=== PATIENT | male | born 1965 | race Caucasian/White ===

== ENCOUNTER 2017-10-19 08:58 | Emergency (ER) | payer SELFPAY ==
[~2017-10-19] VITALS: Ht 175.3 cm; Wt 77.1 kg
[2017-10-19] MEDS ORDERED: IV NORMAL SALINE 1000ML BAG 1,000 ML IV SCH (09:12)
[2017-10-19] MEDS ORDERED: HYDROmorphone 2 MG/ML VIAL IV ONE (09:15)
[2017-10-19] MEDS ORDERED: KETOROLAC 30 MG/ML INJ. IV ONE (09:15)
--- NOTE | 2017-10-19 09:18 | PHYS DOC ---
Adult General Chief Complaint Chief Complaint: ABDOMINAL PAIN HPI HPI 52-year-old male with no prior abdominal history or prior kidney stones now complaining of sudden onset of left flank pain radiating to the abdomen at 6 AM this morning. Patient states she has some severe pain now. It's not worse with movement. He has no one spot that's tender on his abdomen. He does have some dry heaves. He said normal bowel and bladder habits prior to tonight and did move a small bowel movement this morning. Which was unremarkable. No fevers chills sweats or shaking chills. Review of Systems Review of Systems Constitutional: Denies fever or chills [] Eyes: Denies change in visual acuity, redness, or eye pain [] HENT: Denies nasal congestion or sore throat [] Respiratory: Denies cough or shortness of breath [] Cardiovascular: No additional information not addressed in HPI [] GI: Denies abdominal pain, nausea, vomiting, bloody stools or diarrhea [] : Denies dysuria or hematuria [] Musculoskeletal: Denies back pain or joint pain [] Integument: Denies rash or skin lesions [] Neurologic: Denies headache, focal weakness or sensory changes [] Endocrine: Denies polyuria or polydipsia [] All other systems were reviewed and found to be within normal limits, except as documented in this note. Current Medications Current Medications Current Medications Medications (Trade) Dose Ordered Sig/[facility] Start Time Stop Time Status Last Admin Dose Admin Hydromorphone HCl (Dilaudid) 0.5 mg 1X ONCE 10/19/17 09:15 10/19/17 09:30 DC 10/19/17 09:30 0.5 MG Ketorolac Tromethamine (Toradol) 30 mg 1X ONCE 10/19/17 09:15 10/19/17 09:30 DC 10/19/17 09:30 30 MG Sodium Chloride 1,000 ml @ 999 mls/hr Q1H1M 10/19/17 09:12 10/19/17 10:12 DC 10/19/17 09:28 999 MLS/HR Allergies Allergies Allergies Coded Allergies Type Severity Reaction Last Updated Verified No Known Drug Allergies 10/19/17 No Physical Exam Physical Exam 52-year-old male restless and uncomfortable appearing. Mild writhing. Benign abdomen and pelvis with normal bowel sounds no mass or megaly no skin changes. Normal extremities nonfocal neuro Constitutional: Well developed, well nourished, uncomfortable appearing, non- toxic appearance. [] HENT: Normocephalic, atraumatic, bilateral external ears normal, oropharynx moist, no oral exudates, nose normal. [] Eyes: PERRLA, EOMI, conjunctiva normal, no discharge. [] Neck: Normal range of motion, no tenderness, supple, no stridor. [] Cardiovascular:Heart rate regular rhythm, no murmur [] Lungs & Thorax: Bilateral breath sounds clear to auscultation [] Abdomen: Bowel sounds normal, soft, no tenderness, no masses, no pulsatile masses. [] Skin: Warm, dry, no erythema, no rash. [] Back: No tenderness, no CVA tenderness. [] Extremities: No tenderness, no cyanosis, no clubbing, ROM intact, no edema. [] Neurologic: Alert and oriented X 3, normal motor function, normal sensory function, no focal deficits noted. [] Psychologic: Affect normal, judgement normal, mood normal. [] Current Patient Data Vital Signs Vital Signs Date Time Temp Pulse Resp B/P (MAP) Pulse Ox O2 Delivery O2 Flow Rate FiO2 10/19/17 09:53 78 20 116/72 (87) 99 Room Air 10/19/17 08:59 97.6 97.6 Lab Values Laboratory Tests Test 10/19/17 09:15 10/19/17 09:45 White Blood Count 13.0 x10^3/uL (4.0-11.0) H Red Blood Count 5.08 x10^6/uL (4.30-5.70) Hemoglobin 15.5 g/dL (13.0-17.5) Hematocrit 45.5 % (39.0-53.0) Mean Corpuscular Volume 90 fL (79-100) Mean Corpuscular Hemoglobin 31 pg (25-35) Mean Corpuscular Hemoglobin Concent 34 g/dL (31-37) Red Cell Distribution Width 13.2 % (11.5-14.5) Platelet Count 207 x10^3/uL (140-400) Neutrophils (%) (Auto) 81 % (31-73) H Lymphocytes (%) (Auto) 13 % (24-48) L Monocytes (%) (Auto) 6 % (0-9) Eosinophils (%) (Auto) 0 % (0-3) Basophils (%) (Auto) 0 % (0-3) Neutrophils # (Auto) 10.5 x10^3uL (1.8-7.7) H Lymphocytes # (Auto) 1.7 x10^3/uL (1.0-4.8) Monocytes # (Auto) 0.7 x10^3/uL (0.0-1.1) Eosinophils # (Auto) 0.0 x10^3/uL (0.0-0.7) Basophils # (Auto) 0.1 x10^3/uL (0.0-0.2) Sodium Level 138 mmol/L (136-145) Potassium Level 3.7 mmol/L (3.5-5.1) Chloride Level 99 mmol/L (98-107) Carbon Dioxide Level 21 mmol/L (21-32) Anion Gap 18 (6-14) H Blood Urea Nitrogen 14 mg/dL (8-26) Creatinine 1.2 mg/dL (0.7-1.3) Estimated GFR (Cockcroft-Gault) 63.3 BUN/Creatinine Ratio 12 (6-20) Glucose Level 349 mg/dL (70-99) H Calcium Level 8.5 mg/dL (8.5-10.1) Total Bilirubin 0.3 mg/dL (0.2-1.0) Aspartate Amino Transferase (AST) 21 U/L (15-37) Alanine Aminotransferase (ALT) 42 U/L (16-63) Alkaline Phosphatase 75 U/L (46-116) Total Protein 6.9 g/dL (6.4-8.2) Albumin 3.8 g/dL (3.4-5.0) Albumin/Globulin Ratio 1.2 (1.0-1.7) Lipase 134 U/L (73-393) Urine Collection Type Unknown Urine Color Yellow Urine Clarity Clear Urine pH 6.0 Urine Specific [place] 1.025 Urine Protein Negative mg/dL (NEG-TRACE) Urine Glucose (UA) >=1000 mg/dL (NEG) Urine Ketones (Stick) 40 mg/dL (NEG) Urine Blood Large (NEG) Urine Nitrite Negative (NEG) Urine Bilirubin Negative (NEG) Urine Urobilinogen Dipstick 0.2 mg/dL (0.2 mg/dL) Urine Leukocyte Esterase Negative (NEG) Urine RBC >40 /HPF (0-2) Urine WBC Occ /HPF (0-4) Urine Squamous Epithelial Cells Occ /LPF Urine Bacteria 0 /HPF (0-FEW) Laboratory Tests 10/19/17 09:15 Laboratory Tests 10/19/17 09:15 EKG EKG [] Radiology/Procedures Radiology/Procedures [] Course & Med Decision Making Course & Med Decision Making Pertinent Labs and Imaging studies reviewed. (See chart for details) Signs and symptoms consistent with suspected renal colic on the left. Full workup pending. Analgesia IV fluids and anti-inflammatory medicines administered. Will follow laboratory and radiographic results and correlate clinically. CT confirms 2 mm left distal ureteral calculus as well as 4 mm left renal calculus. Patient improved on reevaluation after treatment. Stable and no further workup or treatment indicated at this time. We'll prescribe Flomax. Patient were to take NSAIDs such as ibuprofen 800 mg every 6 hours as well as [place] as prescribed as needed for breakthrough pain. He will follow-up with his primary care doctor for reevaluation referral to urology as needed. Patient aware that a 2 mm stone in his distal ureters are likely to pass spontaneously without complication. No evidence of urinary infection. Patient agrees with outpatient follow-up and strict return precautions will be given. [] Dragon Disclaimer Dragon Disclaimer This electronic medical record was generated, in whole or in part, using a voice recognition dictation system. Departure Departure Impression: Primary Impression: Left low back pain Additional Impressions: Abdominal pain Ureterolithiasis Ureteral colic Kidney stone Hyperglycemia Microscopic hematuria Disposition: 01 HOME, SELF-CARE Condition: IMPROVED Patient Instructions: Kidney Stones Additional Instructions: You have a 2 mm kidney stone in your distal left ureter. It would be typical for this to pass spontaneously without complication. Rest and drink plenty of fluids. Take Flomax as prescribed until you pass the stone. Use ibuprofen 800 mg every 6 hours as needed for pain and use [place] as needed for uncontrolled pain despite the ibuprofen. Follow-up with your doctor for reevaluation and referral to urology as needed. U also have a 4 mm kidney stone in your left kidney but this is not currently passing. Your white blood cell count was elevated at 13.0. This result is nonspecific and it is appropriate to just follow-up with your doctor for reevaluation and further workup and treatment as needed. Return immediately for new severe or worsening symptoms. Scripts Tamsulosin Hcl (FLOMAX) 0.4 Mg Cap.er.24h 0.4 MG PO DAILY for 10 Days, #10 TAB Prov: EULALIA JOHNSON MD 10/19/17 Hydrocodone/Apap 5-325 (NORCO 5-325 TABLET) 1 Each Tablet 1 TAB PO PRN Q6HRS Y for PAIN, #14 TAB 0 Refills Prov: EULALIA JOHNSON MD 10/19/17 Problem Qualifiers EULALIA JOHNSON MD Oct 19, 2017 09:18
[2017-10-19 09:41] LABS: BASO # 0.1 x10^3/uL (0.0-0.2); BASO % 0 % (0-3); EOS % 0 % (0-3); HEMATOCRIT 45.5 % (39.0-53.0); HEMOGLOBIN 15.5 g/dL (13.0-17.5); LYMPH # 1.7 x10^3/uL (1.0-4.8); LYMPH % 13 % (24-48); MEAN CORPUSCULAR HEMOGLOBIN 31 pg (25-35); MEAN CORPUSCULAR HGB CONC 34 g/dL (31-37); MEAN CORPUSCULAR VOLUME 90 fL (79-100); MONO % 6 % (0-9); NEUT % 81 % (31-73); PLATELET COUNT 207 x10^3/uL (140-400); RED BLOOD COUNT 5.08 x10^6/uL (4.30-5.70); RED CELL DISTRIBUTION WIDTH 13.2 % (11.5-14.5)
[2017-10-19 09:51] LABS: CALCIUM 8.5 mg/dL (8.5-10.1); CREATININE 1.2 mg/dL (0.7-1.3); GFR 63.3; POTASSIUM 3.7 mmol/L (3.5-5.1)
[2017-10-19 09:55] LABS: ALBUMIN 3.8 g/dL (3.4-5.0); ALBUMIN/GLOBULIN RATIO 1.2 (1.0-1.7); TOTAL BILIRUBIN 0.3 mg/dL (0.2-1.0); TOTAL PROTEIN 6.9 g/dL (6.4-8.2)
[2017-10-19 10:10] LABS: BILIRUBIN,URINE NEGATIVE (NEG); GLUCOSE,URINE >=1000 mg/dL (NEG); NITRITE,URINE NEGATIVE (NEG); PROTEIN,URINE NEGATIVE (NEG-TRACE); UROBILINOGEN,URINE 0.2 mg/dL (0.2 mg/dL)
[2017-10-19 10:22] LABS: RBC,URINE >40 /HPF (0-2)
[2017-10-19 10:23] LABS: BACTERIA,URINE 0 /HPF (0-FEW); SQUAMOUS EPITHELIAL CELL,UR OCC /LPF; WBC,URINE OCC /HPF (0-4)
--- NOTE | 2017-10-19 10:47 | RAD ---
Indication: Left lower quadrant pain. Axial imaging through the abdomen and pelvis was performed without contrast. No prior studies are available for comparison. The lung bases are clear. The liver and gallbladder are unremarkable. The pancreas and spleen are unremarkable. No adrenal mass is detected. The right kidney is unremarkable and left kidney appears enlarged. There is a nonobstructing calculus lower pole left kidney measuring 4 mm. There is also an approximately 2 mm calculus in the distal left ureter just proximal to the UVJ. There is moderate hydroureteronephrosis. There is mild left perinephric inflammatory stranding. The aorta is nonaneurysmal. The small and large bowel loops are normal caliber. There is no ascites. The bladder is unremarkable. Impression: 1. 4 mm nonobstructing left renal calculus. There is also a 2 mm distal left ureteric calculus producing moderate hydroureteronephrosis and perinephric inflammatory stranding. PQRS Compliance Statement: One or more of the following individualized dose reduction techniques were utilized for this examination: 1. Automated exposure control 2. Adjustment of the mA and/or kV according to patient size 3. Use of iterative reconstruction technique
[2017-10-19] MEDS ORDERED: TAMS0.4C97 PO (12:19)
[2017-10-19] MEDS ORDERED: HYDR-971 PO (12:19)
[2017-10-19 12:26] VITALS: BP 107/64
== END 2017-10-19 12:50 | disposition home or self-care (01) ==
LOC: ER 08:58
DX: N13.2 Hydronephrosis with renal and ureteral calculous obstruction (principal); R31.29 Other microscopic hematuria; M54.5 Low back pain
CPT/HCPCS: 36415; 74176; 80053; 81001; 83690; 85025; 96361; 96374; 96375; 99285; J1170; J1885; J7030